=== PATIENT | female | born 1990 | race Hispanic/Latino ===

== ENCOUNTER 2018-04-23 20:49 | Emergency (ER) | payer SELFPAY ==
[2018-04-23] MEDS ORDERED: Ketorolac Tromethamine 30 MG/ML VIAL ONE (21:24)
[2018-04-23] MEDS ORDERED: diphenhydrAMINE 50 MG/ML VIAL ONE (21:24)
[2018-04-23 21:30] LABS: #Eosinphils 0.1 thou/uL (0.0-0.7); #Lymphocytes 0.9 thou/uL (1.20-3.40); #Monocytes 0.3 thou/uL (0.11-0.59); #Neutrophils 10.1 thou/uL (1.40-6.50); %Basophils 0.2 % (0.0-1.0); %Eosinophils 0.9 % (0.0-10.0); %Lymphocytes 7.9 % (21.0-51.0); %Monocytes 2.3 % (0.0-10.0); %Neutrophils 88.6 % (42.0-75.0); Hemoglobin 14.3 g/dL (12.0-16.0); Mean Corpuscular HGB CONC 31.8 g/dL (32.0-36.0); Mean Corpuscular Hemoglobin 28.4 pg (27.0-31.0); Mean Corpuscular Volume 89.3 fL (78.0-98.0); Mean Platelet Volume 10.2 fL (7.4-10.4); Platelet Count 276 thou/uL (130-400); RBC Distribution Width 12.1 % (11.5-14.5); Red Blood Cell (RBC) Count 5.05 mill/uL (4.20-5.40); White Blood Cell (WBC) Count 11.4 thou/uL (4.8-10.8)
[2018-04-23 21:39] LABS: ALT (SGPT) 44 U/L (8-55); AST (SGOT) 26 U/L (5-34); Albumin 4.2 g/dL (3.5-5.0); Alkaline Phosphatase 39 U/L (40-150); Anion Gap 16 mmol/L (10-20); BUN (Urea Nitrogen) 11 mg/dL (7.0-18.7); Bilirubin, Total 0.3 mg/dL (0.2-1.2); Calc. Creatinine Clearance 0 mL/min (70-130); Calcium 9.6 mg/dL (7.8-10.44); Carbon Dioxide 22 mmol/L (22-29); Chloride 101 mmol/L (98-107); Estimated GFR-MDRD 89; Globulin 3.8 g/dL (2.4-3.5); Glucose 161 mg/dL (70-105); Lipase 18 U/L (8-78); Potassium 3.5 mmol/L (3.5-5.1); Sodium 135 mmol/L (136-145)
[2018-04-23 22:15] LABS: Bilirubin Negative (Negative); Blood, Urine Negative (Negative); Clarity Clear (Clear); Glucose, Urine (Dipstick) Negative (Negative); Leukocyte Negative (Negative); Nitrite Negative (Negative); Protein, Urine (Dipstick) Negative (Neg-Trace); Urobilinogen 0.2 mg/dL (0.2-1.0)
[2018-04-23 22:23] LABS: Pregnancy Test - Urine (BHCG) Negative (Negative); Pregu Control Background? CLEAR/WHITE (CLR/WHITE); Pregu Control Bar Appear? YES (CONTROL BAR); Specific Gravity 1.033 (1.002-1.036); Specific Gravity, Urine 1.033 (1.002-1.036)
--- NOTE | 2018-04-23 23:01 | RAD ---
ABDOMEN TWO VIEWS: 04/23/18 HISTORY: Nausea, vomiting. Pain. FINDINGS: Nonspecific bowel gas pattern. No dilated or distended loops of large or small bowel. No differential air fluid levels. No suspicious densities in the abdomen or pelvis. No pneumoperitoneum on the uprig ht projection. IMPRESSION: Nonspecific bowel gas pattern. POS: [facility]
== END 2018-04-23 23:10 | disposition home or self-care (01) ==
LOC: NAV ERS 20:49
DX: E86.9 Volume depletion, unspecified (principal); R51 Headache; E03.9 Hypothyroidism, unspecified; I10 Essential (primary) hypertension; E11.9 Type 2 diabetes mellitus without complications; E66.9 Obesity, unspecified; F32.9 Major depressive disorder, single episode, unspecified; Z79.899 Other long term (current) drug therapy; Z79.84 Long term (current) use of oral hypoglycemic drugs
CPT/HCPCS: 74019; 80053; 81003; 81025; 83690; 85025; 87804; 96374; 96375; J1200; J1885

== ENCOUNTER 2019-10-14 14:26 | Emergency (ER) | payer SELFPAY ==
[2019-10-14 15:09] LABS: Bilirubin Negative (Negative); Blood, Urine Large (Negative); Clarity Clear (Clear); Glucose, Urine (Dipstick) >=1000 mg/dL (Negative); Leukocyte Small (Negative); Nitrite Positive (Negative); Protein, Urine (Dipstick) 100 mg/dL (Neg-Trace); Urobilinogen 0.2 mg/dL (Less than 2)
[2019-10-14 15:32] LABS: RBC/HPF Greater than 50 HPF (0-3); WBC/HPF 21-50 HPF (0-3)
[2019-10-14 15:33] LABS: Bacteria/HPF Rare-Few HPF (None Seen)
== END 2019-10-14 15:47 | disposition home or self-care (01) ==
LOC: NAV ERS 14:26
DX: N30.00 Acute cystitis without hematuria (principal); E03.9 Hypothyroidism, unspecified; I10 Essential (primary) hypertension; E11.9 Type 2 diabetes mellitus without complications; E66.9 Obesity, unspecified; F32.9 Major depressive disorder, single episode, unspecified; Z79.899 Other long term (current) drug therapy; Z79.84 Long term (current) use of oral hypoglycemic drugs
CPT/HCPCS: 81003; 81015; 87086; 99283

== ENCOUNTER 2020-07-22 20:50 | Emergency (ER) | payer SELFPAY ==
[~2020-07-22 20:50] MED LIST: Iopamidol 370 76% 100 ML VIAL ONE
[2020-07-22] MEDS ORDERED: Acetaminophen 325 MG TAB ONE (21:09)
[2020-07-22] MEDS ORDERED: Ibuprofen 200 MG TAB ONE (21:09)
[2020-07-22 21:40] LABS: #Lymphocytes 2.1 thou/uL (1.20-3.40); #Monocytes 0.3 thou/uL (0.11-0.59); %Basophils 0.4 % (0.0-1.0); %Lymphocytes 38.6 % (21.0-51.0); %Monocytes 6.2 % (0.0-10.0); %Neutrophils 54.8 % (42.0-75.0); Hemoglobin 14.3 g/dL (12.0-16.0); Mean Corpuscular HGB CONC 32.5 g/dL (32.0-36.0); Mean Corpuscular Hemoglobin 28.9 pg (27.0-31.0); Platelet Count 173 thou/uL (130-400); RBC Distribution Width 11.6 % (11.5-14.5); Red Blood Cell (RBC) Count 4.94 mill/uL (4.20-5.40); White Blood Cell (WBC) Count 5.5 thou/uL (4.8-10.8)
[2020-07-22 21:41] LABS: BHCG - Serum Negative (NEGATIVE); Pregs Control Bar Appear? YES (CONTROL BAR)
[2020-07-22 21:44] LABS: ALT (SGPT) 91 U/L (8-55); AST (SGOT) 78 U/L (5-34); Albumin 3.8 g/dL (3.5-5.0); Alkaline Phosphatase 54 U/L (40-110); Anion Gap 17 mmol/L (10-20); BUN (Urea Nitrogen) 8 mg/dL (7.0-18.7); Bilirubin, Total 0.3 mg/dL (0.2-1.2); Calc. Creatinine Clearance 0 mL/min (70-130); Calcium 8.7 mg/dL (7.8-10.44); Carbon Dioxide 21 mmol/L (22-29); Chloride 98 mmol/L (98-107); Globulin 4.1 g/dL (2.4-3.5); Glucose 199 mg/dL (70-105); Magnesium 1.8 mg/dL (1.6-2.6); Potassium 3.4 mmol/L (3.5-5.1); Protein, Total 7.9 g/dL (6.0-8.3); Sodium 133 mmol/L (136-145)
[2020-07-22 22:00] LABS: Bilirubin Negative (Negative); Blood, Urine Negative (Negative); Clarity Clear (Clear); Glucose, Urine (Dipstick) >=1000 mg/dL (Negative); Ketone, Urine Negative (Negative); Leukocyte Negative (Negative); Nitrite Negative (Negative); Protein, Urine (Dipstick) Negative (Neg-Trace); Urobilinogen 0.2 mg/dL (Less than 2)
--- NOTE | 2020-07-22 22:11 | RAD ---
EXAM: Single view of the chest HISTORY: Covid positive with shortness of breath COMPARISON: None FINDINGS: Single view of the chest shows a normal sized cardiomediastinal silhouette. There is questi onable bilateral perihilar opacities. No definite peripheral opacities are appreciated. No acute osseous abnormality. IMPRESSION: Possible bilateral perihilar infiltrates.
--- NOTE | 2020-07-22 23:07 | CT ---
EXAM: CTA of the chest HISTORY: Shortness of breath. Covid positive. COMPARISON: None TECHNIQUE: Multiple contiguous axial images were obtained a CTA of the chest with contrast per pulmon iraida embolism protocol. 3-D oblique MIP reformats and direct coronal reformats were performed. FINDINGS: HEART: Normal in size without focal cardiac abnormality. PULMONARY ARTERIES: Normal in caliber without filling defects to suggest pulmonary emboli. MEDIASTINUM: No hilar or mediastinal lymphadenopathy. LUNGS: Scattered multifocal peripheral opacities in the lungs are consistent with Covid pneumonia. Th is is greatest in the left lung base. Infiltrates are seen in the right perihilar region which corresponds to the abnormality on chest x-ray. No focal infiltrates or masses. PLEURAL SPACE: No pleural effusion or pneumothorax. CHEST WALL SOFT TISSUES: Unremarkable VISUALIZED OSSEOUS STRUCTURES: No acute abnormality. VISUALIZED SUBDIAPHRAGMATIC STRUCTURES: Unremarkable IMPRESSION: 1. No evidence of pulmonary thromboembolism 2. Covid pneumonia
[2020-07-22] MEDS ORDERED: Ondansetron ODT 4 MG TAB ONE (23:13)
== END 2020-07-22 23:23 | disposition home or self-care (01) ==
LOC: NAV ERS 20:50
DX: U07.1 COVID-19 (principal); J12.82 Pneumonia due to coronavirus disease 2019; E03.9 Hypothyroidism, unspecified; I10 Essential (primary) hypertension; E11.9 Type 2 diabetes mellitus without complications; E66.9 Obesity, unspecified; Z79.84 Long term (current) use of oral hypoglycemic drugs; Z79.899 Other long term (current) drug therapy
CPT/HCPCS: 71045; 71275; 80053; 81003; 83605; 83735; 84484; 84703; 85025; 85379; 93005; 94760; Q0162; Q9967

== ENCOUNTER 2021-05-24 15:15 | Emergency (ER) | payer OTHER, SELFPAY ==
[2021-05-24] MEDS ORDERED: Lidocaine 1% (PF) 30 ML VIAL ONE (15:37)
[2021-05-24] MEDS ORDERED: Boostrix 0.5 ML (Tdap) VIAL ONE (16:08)
[2021-05-24] MEDS ORDERED: TETANUS, DIPHTHERIA TOX,ADULT (TDVAX) 0.5 ML VIAL IM ONE (16:08)
[2021-05-24] MEDS ORDERED: Sulfameth/Trimethoprim DS 800-160mg TAB ONE (16:17)
== END 2021-05-24 16:30 | disposition home or self-care (01) ==
LOC: NAV ERS 15:15
DX: L02.416 Cutaneous abscess of left lower limb (principal); E03.9 Hypothyroidism, unspecified; I10 Essential (primary) hypertension; E11.9 Type 2 diabetes mellitus without complications; E28.2 Polycystic ovarian syndrome; E66.9 Obesity, unspecified; Z68.45 Body mass index [BMI] 70 or greater, adult; Z23 Encounter for immunization
CPT/HCPCS: 10060; 87070; 87077; 87205; 90471; 90714; 90715; J2001

== ENCOUNTER 2021-05-27 09:07 | Emergency (ER) | payer SELFPAY | END 2021-05-27 09:55 | disposition home or self-care (01) | LOC: NAV ERS 09:07 | DX: Z48.01 Encounter for change or removal of surgical wound dressing (principal); E03.9 Hypothyroidism, unspecified; I10 Essential (primary) hypertension; E11.9 Type 2 diabetes mellitus without complications; E66.9 Obesity, unspecified | CPT/HCPCS: 99282 ==

== ENCOUNTER 2023-04-08 23:08 | Emergency (ER) | payer SELFPAY | END 2023-04-08 23:58 | disposition home or self-care (01) | LOC: NAV ERS 23:08 | DX: O26.851 Spotting complicating pregnancy, first trimester (principal); E11.9 Type 2 diabetes mellitus without complications; I10 Essential (primary) hypertension; Z79.4 Long term (current) use of insulin; Z3A.10 10 weeks gestation of pregnancy ==

== ENCOUNTER 2024-05-01 18:18 | Emergency (ER) | payer OTHER ==
[2024-05-01] MEDS ORDERED: Ondansetron ODT 4 MG TAB ONE (18:48)
[2024-05-01] MEDS ORDERED: Morphine 2 MG/ML VIAL ONE (20:04)
== END 2024-05-01 20:23 | disposition home or self-care (01) ==
LOC: NAV ERS 18:18
DX: K52.9 Noninfective gastroenteritis and colitis, unspecified (principal); I10 Essential (primary) hypertension
CPT/HCPCS: 93005; 99284; J2272; Q0162